=== PATIENT | female | born 1990 | race Caucasian/White ===

== ENCOUNTER 2016-07-06 10:53 | Emergency (ER) | payer OTHER ==
[~2016-07-06] VITALS: Ht 157.5 cm; Wt 127.0 kg
[~2016-07-06 10:53] MED LIST: PROAIR HFA0.09 MG/Ac INH
[2016-07-06] MEDS ORDERED: OVCON PO (11:30)
[2016-07-06] MEDS ORDERED: PROAIR HFA8.5 GM INH (11:30)
[2016-07-06] MEDS ORDERED: AMOXICILLIN875 M1 PO (11:41)
[2016-07-06] MEDS ORDERED: LIDOCAINE HCL V15 ML PO (11:41)
[2016-07-06] MEDS ORDERED: IBUPROFEN800 M1 PO (11:41)
--- NOTE | 2016-07-06 11:43 | ED THROAT/DENTAL COMPLAINT ---
History of Present Illness General Chief Complaint: General Adult Stated Complaint: SORE THROAT/WEAKNESS ABNORMAL HEART RATE Source: patient Exam Limitations: no limitations Vital Signs & Intake/Output Vital Signs & Intake/Output Vital Signs Date Time Temp Pulse Resp B/P B/P Pulse O2 O2 Flow FiO2 Mean Ox Delivery Rate 07/06 1455 99.7 112 16 135/58 97 Room Air 07/06 1233 99.7 07/06 1145 101.3 07/06 1104 101.3 134 20 123/80 98 Room Air Room Air Allergies Coded Allergies: NO KNOWN ALLERGIES (07/21/15) Reconcile Medications Albuterol Sulfate (Proair Hfa) 90 MCG HFA.AER.AD 2 PUF INH Q4-6 PRN PRN SHORTNESS OF BREATH (Reported) Amoxicillin 875 MG TABLET 1 TAB PO BID strep Ibuprofen 800 MG TABLET 1 TAB PO TID pain/fever Lidocaine HCl (Lidocaine HCl Viscous) 2 % SOLUTION 15 ML PO 4 TIMES/DAY throat pain magic mouth wash Norethindrone-Ethinyl Estrad (Ovcon-35 28 Tablet) 0.4 MG-35 MCG TABLET 1 TAB PO DAILY BC (Reported) Triage Note: PT SENT TO ED FROM [facility] IN [facility] FOR ABNORMAL HEART RATE. PT WAS DIAGNOSED WITH +STREP AND HAS BEEN FEELING WEAK AND TIRED. PT IS FEBRILE IN TRAIGE 101.3. TACHYCARDIC 134. Triage Nurses Notes Reviewed? yes Onset: Abrupt Duration: hour(s): (1 am), constant, continues in ED Severity: moderate, severe No Modifying Factors: none : No Patient currently breastfeeds: No HPI: 26-year-old female comes into emergency room sent in by walking [facility] for a positive strep. She was sent here due to the fact that she had a high heart rate. Patient also febrile. They reported that her blood pressure was slightly elevated. She denies any nausea vomiting. Some mild diarrhea. Complaining of some mild left-sided upper abdominal pain. Symptoms were sudden onset. 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 Sore throat. Difficulty with swallowing. Denies any cough. Chills body aches. Past History Travel History Traveled to [place] past 21 day No Medical History Any Pertinent Medical History? 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 No Review of Systems Review of Systems Constitutional: Reports: see HPI. EENTM: Reports: see HPI. Respiratory: Reports: no symptoms. Cardiovascular: Reports: no symptoms. GI: Reports: see HPI. Genitourinary: Reports: no symptoms. Musculoskeletal: Reports: no symptoms. Skin: Reports: no symptoms. Neurological/Psychological: Reports: no symptoms. Hematologic/Endocrine: Reports: no symptoms. Immunologic/Allergic: Reports: no symptoms. All Other Systems: Reviewed and Negative Physical Exam Physical Exam General Appearance: well developed/nourished, alert, awake, mild distress Head: atraumatic Eyes: Bilateral: normal appearance. Nose: normal inspection Mouth/Throat: pharynx swelling (/erythema), tonsillar exudate, tonsillar swelling Neck: normal inspection, lymphadenopathy (R), lymphadenopathy (L) Cardiovascular/Respiratory: normal breath sounds, no respiratory distress, tachycardia Gastrointestinal: soft, nontender Back: normal inspection Neurologic/Psych: awake, alert, oriented x 3, normal gait, normal mood/affect Skin: intact, normal color Core Measures ACS in differential dx? No Severe Sepsis Present: No Septic Shock Present: No Progress Differential Diagnosis: aspirated tooth, carious tooth, epiglottitis, Ludwigs angina, meningitis, odontogenic abscess, jigar-tonsillar abscess, pharyngeal for. body, stomatitis/gingivitis, strep pharyngitis, tooth fracture, mono Plan of Care: Orders Procedure Date/time Status EKG 07/06 1056 Active Initial ED EKG: normal intervals, normal p-waves, normal sinus rhythm, rate (132 ), nonspecific ST T wave chg Comments: 07/06/2016 3:32:07 PM Symptoms significantly improved after IV medication. Patient feels better. Patient discharged home. Case discussed with Dr. Costa. Heart rate related to the patient's fever. She has a positive strep from the walk-in clinic. Cover with amoxicillin. Departure Departure Disposition: HOME OR SELF CARE Condition: Stable Clinical Impression Primary Impression: Strep pharyngitis Referrals: SEBASTIAN CLEMONS (PCP/Family) Additional Instructions: Take amoxicillin, ibuprofen, and Magic mouthwash as prescribed. Drink plenty of fluids. Rest. Please go over all results of today's visit with your primary care doctor. Contact your primary care doctor to let them know you were here in the emergency room. There may be nonspecific findings which may not be related to your visit today here in the emergency room but may require further evaluation and chronic monitoring by your primary care doctor. If you had a laceration today the chance of foreign body always remains. You should follow-up with your primary care doctor for recheck in 3-5 days for a wound check. If you had an x-ray done there is a chance that a fracture could have been missed on initial read and you should follow-up with your primary care doctor for repeat x-rays if symptoms persist. If your blood pressure was elevated here in the emergency room please have rechecked by her primary care doctor within the next 48 hours by your primary care doctor. If you were prescribed a narcotic here in the emergency room or any type of controlled substances you're not allowed to drive while taking this medication or operate any type of heavy machinery. Narcotics can make you feel lightheaded dizziness nausea and can cause constipation. You may need to orange picker a stool softener. Thank you for choosing [facility] emergency room. Please return to the emergency room immediately if you have any other concerns worsening of symptoms. Departure Forms: Customer Survey General Discharge Information Prescriptions: Current Visit Scripts Amoxicillin 1 TAB PO BID #20 TAB Lidocaine HCl (Lidocaine HCl Viscous) 15 ML PO 4 TIMES/DAY #100 ML magic mouth wash Ibuprofen 1 TAB PO TID #30 TAB Comments 07/06/2016 12:26:55 PM Patient tachycardic due to the fact that she is febrile. Nonspecific ST changes are rate related likely. Patient has a positive strep by the walk-in clinic. Clinical signs and symptoms of strep. Patient treated with amoxicillin. Follow -up with primary care doctor. Clinically looks well. In no apparent distress.
[2016-07-06 14:55] VITALS: BP 135/58
== END 2016-07-06 13:04 ==
LOC: ERH 10:53
DX: J02.0 Streptococcal pharyngitis (principal)
CPT/HCPCS: 93005; 93010; 96361; 96374; 96375; J0131; J1885